=== PATIENT | male | born 1980 | race Two or more races ===

== ENCOUNTER 2016-12-21 10:39 | Emergency (ER) | payer MEDICAID ==
[~2016-12-21] VITALS: Ht 177.8 cm; Wt 122.5 kg
[2016-12-21 11:08] VITALS: BP 143/97
== END 2016-12-21 11:52 | disposition home or self-care (01) ==
LOC: ER 10:42
DX: S09.90XA Unspecified injury of head, initial encounter (principal); R06.4 Hyperventilation; F41.9 Anxiety disorder, unspecified; W22.8XXA Striking against or struck by other objects, initial encounter; Y93.89 Activity, other specified; Y99.8 Other external cause status; Y92.89 Other specified places as the place of occurrence of the external cause

== ENCOUNTER 2017-04-15 16:31 | Emergency (ER) | payer MEDICAID ==
[~2017-04-15] VITALS: Ht 177.8 cm; Wt 115.7 kg
[2017-04-15 17:32] LABS: Basophils # (auto) 0 uL; Basophils % (auto) 0.7 % (0.0-2.0); CONDITION Y; Eosinophils # (auto) 0.1 uL; Hematocrit 43.3 % (41.0-53.0); Hemoglobin 14.9 g/dL (13.5-17.5); Lymphocytes # (auto) 1.3 uL; Lymphocytes % (auto) 21.9 % (10.0-50.0); Mean Corpuscular Hemoglobin 29.7 pg (28.0-32.0); Mean Corpuscular Hgb Conc. 34.5 g/dL (32.0-36.0); Mean Corpuscular Volume 86.1 fL (80.0-100.0); Mean Platelet Volume 8.6 fL (7.4-10.4); Monocytes # (auto) 0.4 uL; Monocytes % (auto) 6.8 % (0.0-12.0); Neutrophils # (auto) 4.2 uL; Neutrophils % (auto) 68.6 % (37.0-80.0); Platelet Count (auto) 291 10^3/uL (140-450); White Blood Cell 6.1 10^3/uL (4.4-10.8)
[2017-04-15 17:45] LABS: Urine Bilirubin Negative (Negative); Urine Blood Negative /uL (Negative); Urine Color Yellow (Yellow); Urine Glucose Normal (Normal); Urine Ketone Negative (Negative); Urine Nitrite Negative (Negative); Urine RBC <1 /hpf (0 - 3); Urine Urobilinogen Normal (Negative)
[2017-04-15 17:53] LABS: Albumin 4.4 g/dL (3.4-5.0); BUN/Creatinine Ratio 15.3; Calcium 8.9 mg/dL (8.5-10.1); Potassium 4.2 mmol/L (3.5-5.1)
[2017-04-15 17:56] LABS: Bilirubin, Total 0.5 mg/dL (0.2-1.0); Total Protein 7.8 g/dL (6.4-8.2)
[2017-04-16 01:28] VITALS: BP 127/86
== END 2017-04-16 01:32 | disposition home or self-care (01) ==
LOC: ER 16:39
DX: K58.9 Irritable bowel syndrome, unspecified (principal); R10.32 Left lower quadrant pain
CPT/HCPCS: 36415; 71010; 74176; 80053; 80307; 81001; 82150; 82962; 83690; 84484; 85025; 93005; 94761

== ENCOUNTER 2017-04-20 16:25 | Emergency (ER) | payer MEDICAID ==
[~2017-04-20] VITALS: Ht 177.8 cm; Wt 117.9 kg
[2017-04-20 18:36] VITALS: BP 120/77
== END 2017-04-20 20:58 | disposition home or self-care (01) ==
LOC: ER 16:34
DX: M79.662 Pain in left lower leg (principal); M79.89 Other specified soft tissue disorders; R20.0 Anesthesia of skin
CPT/HCPCS: 93971